=== PATIENT | male | born 1990 | race Caucasian/White ===

== ENCOUNTER 2017-05-12 02:50 | Emergency (ER) | payer OTHER ==
[~2017-05-12 02:50] MED LIST: NOCURR
== END 2017-05-12 03:29 | disposition left against medical advice (07) ==
LOC: EMS 02:51
DX: S01.411A Laceration without foreign body of right cheek and temporomandibular area, initial encounter (principal); S00.91XA Abrasion of unspecified part of head, initial encounter; F17.210 Nicotine dependence, cigarettes, uncomplicated; Z53.21 Procedure and treatment not carried out due to patient leaving prior to being seen by health care provider; Y08.89XA Assault by other specified means, initial encounter; Y93.89 Activity, other specified; Y92.89 Other specified places as the place of occurrence of the external cause; Y99.8 Other external cause status

== ENCOUNTER 2018-01-10 04:27 | Emergency (ER) | payer OTHER ==
[~2018-01-10] VITALS: Ht 175.3 cm; Wt 100.0 kg
[2018-01-10 04:38] VITALS: BP 155/91
== END 2018-01-10 04:54 | disposition left against medical advice (07) ==
LOC: EMS 04:28
DX: Z53.21 Procedure and treatment not carried out due to patient leaving prior to being seen by health care provider (principal)